=== PATIENT | female | born 1980 | race Caucasian/White ===

== ENCOUNTER 2016-09-29 17:45 | Emergency (ER) | payer MEDICAID ==
[2016-09-29] MEDS ORDERED: PRENATABS FA T1 EACH PO (18:17)
== END 2016-09-29 21:22 ==
LOC: EDMED 17:45
DX: S93.492A Sprain of other ligament of left ankle, initial encounter (principal); X50.1XXA Overexertion from prolonged static or awkward postures, initial encounter; Y92.009 Unspecified place in unspecified non-institutional (private) residence as the place of occurrence of the external cause

== ENCOUNTER 2016-12-29 20:34 | Inpatient (IN) | payer MEDICAID ==
[~2016-12-29 20:34] MED LIST: PRENATABS FA T1 EACH PO
[2016-12-29] MEDS ORDERED: TUMS200 MG PO (22:27)
[2016-12-29] MEDS ORDERED: RANITIDINE HCL150 M3 PO (22:28)
[2016-12-30 23:10] LABS: HCT-HEMATOCRIT 43.8 % (34.0-49.0); IMMATURE GRANULOCYTES ABSOLUTE 0.16 tho/cmm (0-0.03); IMMATURE GRANULOCYTES PERCENT 0.7 % (0-0.3); LYMPH % 4.4 % (20-45); LYMPH ABSOLUTE COUNT 1.1 tho/cmm (0.8-4.5); MCH (MEAN CORPUSCULAR HGB) 30.5 pg (28.0-32.0); MCHC MEAN CORPUSCULAR HGB CONC 34.2 % (32.0-36.0); MCV (MEAN CELL VOLUME) 89.2 fl (82.0-96.0); MEAN PLATELET VOLUME 9.7 cmc (9.4-12.4); MONO % 3.4 % (0-12); MONOCYTE ABSOLUTE COUNT 0.8 tho/cmm (0.0-1.2); NEUTROPHIL ABSOLUTE COUNT 22.3 tho/cmm (1.6-8.0); NEUTROPHIL-AUTOMATED 22.3 tho/cmm (1.6-8.0); NEUTROPHILS % 91.5 % (40-80); PLATELET COUNT 311 tho/cmm (150-450); RED BLOOD COUNT 4.91 mil/cmm (4.00-5.20); RED CELL DISTRIBUTION WIDTH 13.6 % (12.4-16.4); WHITE BLOOD COUNT 24.4 tho/cmm (4.0-10.0)
[2016-12-31 01:29] LABS: CORD BLOOD PH ARTERIAL 7.33 Units (7.18-7.38)
[2016-12-31 12:49] LABS: BASO % 0.1 % (0-2); EOS % 0.3 % (0-7); EOSINOPHIL ABSOLUTE COUNT 0.1 tho/cmm (0.0-0.7); HGB-HEMOGLOBIN 12.4 gm/dl (12.0-15.5); IMMATURE GRANULOCYTES PERCENT 0.5 % (0-0.3); LYMPH % 10.7 % (20-45); LYMPH ABSOLUTE COUNT 2.1 tho/cmm (0.8-4.5); MCH (MEAN CORPUSCULAR HGB) 29.9 pg (28.0-32.0); MCHC MEAN CORPUSCULAR HGB CONC 33.5 % (32.0-36.0); MCV (MEAN CELL VOLUME) 89.2 fl (82.0-96.0); MEAN PLATELET VOLUME 9.7 cmc (9.4-12.4); MONO % 7.4 % (0-12); MONOCYTE ABSOLUTE COUNT 1.5 tho/cmm (0.0-1.2); NEUTROPHIL ABSOLUTE COUNT 15.8 tho/cmm (1.6-8.0); NEUTROPHIL-AUTOMATED 15.8 tho/cmm (1.6-8.0); PLATELET COUNT 270 tho/cmm (150-450); RED BLOOD COUNT 4.15 mil/cmm (4.00-5.20); RED CELL DISTRIBUTION WIDTH 13.8 % (12.4-16.4); WHITE BLOOD COUNT 19.5 tho/cmm (4.0-10.0)
[2017-01-02] MEDS ORDERED: IBUPROFEN800 M1 PO (20:10)
[2017-01-02] MEDS ORDERED: NORCO 5-325 TA1 EACH PO (20:11)
== END 2017-01-03 14:45 | DRG 765 ==
LOC: LDR 20:34 → OBGD 12-31 00:45
PROVIDERS: Obstetrics & Gynecology; ADMIT Advanced Practice Midwife
PROC: 3E0P7GC Introduction of Other Therapeutic Substance into Female Reproductive, Via Natural or Artificial Opening (ICD-10-PCS; 2016-12-29)
PROC: 10D00Z1 Extraction of Products of Conception, Low, Open Approach (ICD-10-PCS; principal; 2016-12-30)
DX: O48.0 Post-term pregnancy (principal); O63.9 Long labor, unspecified; O99.824 Streptococcus B carrier state complicating childbirth; O76 Abnormality in fetal heart rate and rhythm complicating labor and delivery; Z37.0 Single live birth; Z3A.41 41 weeks gestation of pregnancy; O62.0 Primary inadequate contractions
CPT/HCPCS: J0690; J1170; J2405; J2540; J2590; J2795; J7050